=== PATIENT | female | born 1950 | race Caucasian/White ===

== ENCOUNTER 2022-12-11 15:03 | Observation (INO) ==
[2022-12-11 16:31] LABS: Basophils % 0.5 % (0.0-0.8); Eosinophils # 0.1 10*3/uL (0.0-0.87); Eosinophils % 1.4 % (0.00-10.9); Hematocrit 40.3 VOL% (35.7-47.0); Hemoglobin 13.7 GM/DL (12.0-16.0); Immature Granulocytes % 0.5 %; Immature Granulocytes Absolute 0.04 #; Lymphocytes # 1.2 10*3/uL (1.4-4.0); Lymphocytes % 14.4 % (21.3-54.2); Mean Corpuscular Volume 90.4 FL (87-102); Mean Platelet Volume 10.4 FL (9.6-12.0); Monocytes # 0.6 10*3/uL (0.11-0.8); Monocytes % 7.5 % (1.7-12.7); Neutrophils % 75.7 % (38.7-73.9); Platelet Count 256 T/CUMM (130-400); Red Blood Count 4.46 MC/CUMM (3.8-5.5); Red Cell Distribution Width 13.4 % (9.3-17.3)
[2022-12-11 17:11] LABS: Alanine Aminotransferase 17 U/L (13-56); Albumin 3.7 G/DL (3.4-5.0); Alkaline Phosphatase 110 U/L (45-117); Aspartate Amino Transferase 15 U/L (0-37); Bilirubin,Total < 0.39 MG/DL (0.20-1.00); Blood Urea Nitrogen 21 MG/DL (7-18); Calcium 9.5 MG/DL (8.5-10.1); Carbon Dioxide 23 MMOL/L (21-32); Chloride 109 MMOL/L (98-107); Glucose 102 MG/DL (74-106); Osmolality,Calculated 281.4 MOS/KG (273-304); Potassium 3.7 MMOL/L (3.5-5.1); Sodium 140 MMOL/L (136-145); Total Protein 6.6 G/DL (6.4-8.2)
[2022-12-11] MEDS ORDERED: ONDANSETRON 4 MG/2 ML VIAL IV PRN (20:34)
[2022-12-11] MEDS ORDERED: FUROSEMIDE 40 MG TABLET PO PRN (20:38)
[2022-12-11] MEDS: ENOXAPARIN 40 MG/0.4 ML SYRINGE SUBCUT SCH (21:38)
[2022-12-11] MEDS: ATORVASTATIN 20 MG TABLET PO SCH (21:39)
[2022-12-11] MEDS ORDERED: POTASSIUM CHLORIDE 20 MEQ TABLET PO PRN (22:30)
[2022-12-11] MEDS ORDERED: POTASSIUM CHLORIDE 20 MEQ TABLET PO ONE (22:30)
[2022-12-11] MEDS: ACETAMINOPHEN 325 MG TABLET PO PRN (23:09)
[2022-12-12 08:20] LABS: Basophils # 0.1 10*3/uL (0.0-0.2); Basophils % 0.7 % (0.0-0.8); Eosinophils # 0.2 10*3/uL (0.0-0.87); Eosinophils % 2.1 % (0.00-10.9); Hematocrit 39.3 VOL% (35.7-47.0); Hemoglobin 12.8 GM/DL (12.0-16.0); Immature Granulocytes % 0.3 %; Immature Granulocytes Absolute 0.02 #; Lymphocytes # 1.6 10*3/uL (1.4-4.0); Lymphocytes % 21.5 % (21.3-54.2); Mean Corpuscular HGB Conc 32.6 GM/DL (32-36); Mean Corpuscular Volume 92.9 FL (87-102); Mean Platelet Volume 10.5 FL (9.6-12.0); Monocytes # 0.7 10*3/uL (0.11-0.8); Monocytes % 10.1 % (1.7-12.7); Neutrophils % 65.3 % (38.7-73.9); Platelet Count 254 T/CUMM (130-400); Red Blood Count 4.23 MC/CUMM (3.8-5.5); Red Cell Distribution Width 13.8 % (9.3-17.3); White Blood Count 7.3 T/CUMM (4-12)
[2022-12-12] MEDS: carvediloL 3.125 MG TABLET PO SCH ×2 (09:56→21:06)
[2022-12-12] MEDS: lisinopriL 10 MG TABLET PO SCH (09:56)
[2022-12-12] MEDS: PANTOPRAZOLE 40 MG TABLET PO SCH (09:56)
[2022-12-12] MEDS: NON-FORMULARY MEDICATION (Fluticasone-Umeclidin-Vilanter [Trelegy Ellipta] 200-62.5-25 mcg INH SCH (09:57)
[2022-12-12 11:15] LABS: Albumin 3.2 G/DL (3.4-5.0); Bilirubin,Total 0.4 MG/DL (0.20-1.00); Calcium 9.2 MG/DL (8.5-10.1); Osmolality,Calculated 281.3 MOS/KG (273-304); Total Protein 6.4 G/DL (6.4-8.2)
[2022-12-12] MEDS: ACETAMINOPHEN 325 MG TABLET PO PRN (21:06)
[2022-12-12] MEDS: ATORVASTATIN 20 MG TABLET PO SCH (21:06)
[2022-12-12] MEDS: ENOXAPARIN 40 MG/0.4 ML SYRINGE SUBCUT SCH (21:07)
[2022-12-13] MEDS: METOPROLOL TARTRATE 25 MG TABLET PO SCH ×2 (10:21→22:49)
[2022-12-13] MEDS: lisinopriL 10 MG TABLET PO SCH (10:21)
[2022-12-13] MEDS: NON-FORMULARY MEDICATION (Fluticasone-Umeclidin-Vilanter [Trelegy Ellipta] 200-62.5-25 mcg INH SCH (10:21)
[2022-12-13] MEDS: PANTOPRAZOLE 40 MG TABLET PO SCH (10:24)
[2022-12-13] MEDS: carvediloL 3.125 MG TABLET PO SCH (10:25)
[2022-12-13] MEDS: FLUTICASONE 50 MCG NASAL SPRAY 16 GM BOTTLE BOTH NARES SCH ×2 (16:20→22:53)
[2022-12-13] MEDS: ATORVASTATIN 20 MG TABLET PO SCH (22:49)
[2022-12-13] MEDS: ENOXAPARIN 40 MG/0.4 ML SYRINGE SUBCUT SCH (22:50)
[2022-12-14] MEDS: ALBUTEROL 2.5 MG/3 ML NEB RESP TX PRN ×2 (02:40→14:12)
[2022-12-14] MEDS: lisinopriL 10 MG TABLET PO SCH (08:47)
[2022-12-14] MEDS: NON-FORMULARY MEDICATION (Fluticasone-Umeclidin-Vilanter [Trelegy Ellipta] 200-62.5-25 mcg INH SCH (08:47)
[2022-12-14] MEDS: PANTOPRAZOLE 40 MG TABLET PO SCH (08:47)
[2022-12-14] MEDS: METOPROLOL TARTRATE 25 MG TABLET PO SCH (08:47)
[2022-12-14] MEDS: FLUTICASONE 50 MCG NASAL SPRAY 16 GM BOTTLE BOTH NARES SCH ×2 (08:49→21:30)
[2022-12-14] MEDS ORDERED: METOPROLOL TARTRATE 25 MG TABLET PO ONE (08:53)
[2022-12-14] MEDS ORDERED: METOPROLOL TARTRATE 50 MG TABLET PO SCH (09:00)
[2022-12-14] MEDS ORDERED: MAGNESIUM SULF RIDER 2 GM/50 ML PREMIX IV ONE (12:01)
[2022-12-14] MEDS: CETIRIZINE 10 MG TABLET PO SCH (13:35)
[2022-12-14] MEDS: ATORVASTATIN 20 MG TABLET PO SCH (21:29)
[2022-12-14] MEDS: METOPROLOL TARTRATE 50 MG TABLET PO SCH (21:30)
[2022-12-14] MEDS: ENOXAPARIN 40 MG/0.4 ML SYRINGE SUBCUT SCH (21:30)
[2022-12-15 05:45] LABS: Basophils # 0.1 10*3/uL (0.0-0.2); Basophils % 0.6 % (0.0-0.8); Eosinophils # 0.2 10*3/uL (0.0-0.87); Hematocrit 35.1 VOL% (35.7-47.0); Hemoglobin 11.8 GM/DL (12.0-16.0); Immature Granulocytes % 0.5 %; Immature Granulocytes Absolute 0.04 #; Lymphocytes # 1.5 10*3/uL (1.4-4.0); Mean Corpuscular HGB Conc 33.6 GM/DL (32-36); Mean Corpuscular Volume 91.6 FL (87-102); Mean Platelet Volume 10.7 FL (9.6-12.0); Monocytes # 0.8 10*3/uL (0.11-0.8); Monocytes % 9.5 % (1.7-12.7); Neutrophils % 68.4 % (38.7-73.9); Platelet Count 227 T/CUMM (130-400); Red Blood Count 3.83 MC/CUMM (3.8-5.5); Red Cell Distribution Width 13.5 % (9.3-17.3)
[2022-12-15 06:05] LABS: Calcium 8.8 MG/DL (8.5-10.1); Osmolality,Calculated 281.4 MOS/KG (273-304); Potassium 3.8 MMOL/L (3.5-5.1)
[2022-12-15] MEDS ORDERED: POTASSIUM CHLORIDE 20 MEQ TABLET PO ONE (08:14)
[2022-12-15] MEDS ORDERED: MAGNESIUM SULF RIDER 2 GM/50 ML PREMIX IV ONE (08:15)
[2022-12-15] MEDS: FLUTICASONE 50 MCG NASAL SPRAY 16 GM BOTTLE BOTH NARES SCH (09:08)
[2022-12-15] MEDS: lisinopriL 10 MG TABLET PO SCH (09:08)
[2022-12-15] MEDS: PANTOPRAZOLE 40 MG TABLET PO SCH (09:08)
[2022-12-15] MEDS: CETIRIZINE 10 MG TABLET PO SCH (09:08)
[2022-12-15] MEDS: METOPROLOL TARTRATE 50 MG TABLET PO SCH (09:08)
[2022-12-15] MEDS: NON-FORMULARY MEDICATION (Fluticasone-Umeclidin-Vilanter [Trelegy Ellipta] 200-62.5-25 mcg INH SCH (09:11)
[2022-12-15 12:20] VITALS: BP 114/55
== END 2022-12-15 15:18 | disposition home or self-care (01) ==
LOC: N.ED 15:03 → SUATTDRO 20:34 → INTOOBSV 20:34 → N.EDINP 20:34 → N.TELES 22:10
PROVIDERS: ADMIT Internal Medicine; ATTEND Internal Medicine